=== PATIENT | female | born 1975 | race Caucasian/White ===

== ENCOUNTER 2018-06-17 19:49 | Emergency (ER) | payer MEDICARE, MEDICAID ==
[~2018-06-17] VITALS: Ht 157.5 cm; Wt 74.8 kg
[2018-06-17] MEDS ORDERED: COZAAR 25 MG TA25 M1 PO (20:07)
[2018-06-17] MEDS ORDERED: LASIX 20 MG TAB20 MG PO (20:07)
[2018-06-17 20:23] LABS: URINE BILIRUBIN NEGATIVE (Negative); URINE BLOOD 2+ (Negative); URINE CLARITY CLEAR; URINE COLOR YELLOW; URINE GLUCOSE-RANDOM NEGATIVE (Negative); URINE KETONES NEGATIVE (Negative); URINE LEUKOCYTES 1+ (Negative); URINE NITRITE NEGATIVE (Negative); URINE PROTEIN NEGATIVE (Negative); URINE UROBILINOGEN 0.2 E.U./dl (0.2-1.0)
[2018-06-17 20:33] LABS: MUCUS None Seen strn/LPF (None Seen); SQUAMOUS >10 Many /LPF (0-3); URINE WBC 0-5 Rare /HPF (0-5)
[2018-06-17 20:34] LABS: CASTS None Seen /LPF (None Seen); CRYSTALS None Seen /LPF (None Seen); URINE RBC 3-10 Few /HPF (0-2)
[2018-06-17 20:44] LABS: ABSOLUTE EOSINOPHILS 0.2 thou/uL (0.0-0.7); ABSOLUTE LYMPHOCYTES 3.3 thou/uL (0.8-5.3); ABSOLUTE MONOCYTES 0.6 thou/uL (0.0-1.2); ABSOLUTE NEUTROPHILS 4.4 thou/uL (1.6-8.1); BASOPHILS 0.6 %; EOSINOPHILS 1.8 %; HEMATOCRIT 44.3 % (37.0-47.0); HEMOGLOBIN 15.3 gm/dL (12.0-15.0); LYMPHOCYTES 39.4 %; MCH 31.5 pg (26.0-34.0); MCHC 34.6 g/dL (28.0-37.0); MCV 90.9 fL (80.0-100.0); MONOCYTES 6.7 %; MPV 7.4 fl. (7.2-11.1); NUCLEATED RBCS 0 /100WBC; PLATELET COUNT* 292 thou/uL (150-400); POLYS 51.5 %; RBC 4.87 mil/uL (4.20-5.00); RDW-CV 11.8 % (10.5-14.5); WBC 8.4 thou/uL (4.0-11.0)
[2018-06-17 20:53] LABS: CALCIUM 9.6 mg/dL (8.5-10.1); CREATININE 0.7 mg/dL (0.6-1.3); POTASSIUM 3.6 mmol/L (3.5-5.1)
[2018-06-17 20:57] LABS: ALBUMIN 3.5 g/dL (3.4-5.0); TOTAL BILIRUBIN 0.2 mg/dL (<0.1-1.0); TOTAL PROTEIN 6.8 g/dL (6.4-8.2)
[2018-06-17] MEDS ORDERED: ACETAMINOPHEN-1 EAC1 PO (22:14)
[2018-06-17] MEDS ORDERED: KEFLEX500 M1 PO (22:14)
[2018-06-17] MEDS ORDERED: NABUMETONE 750750 M1 PO (22:14)
[2018-06-17 22:23] VITALS: BP 190/78
== END 2018-06-17 22:23 | disposition home or self-care (01) ==
LOC: M.ERS 19:49
PROVIDERS: Nurse Practitioner Family
DX: R19.04 Left lower quadrant abdominal swelling, mass and lump (principal); N39.0 Urinary tract infection, site not specified; I10 Essential (primary) hypertension; Z91.041 Radiographic dye allergy status; Z88.8 Allergy status to other drugs, medicaments and biological substances

== ENCOUNTER 2018-07-13 16:57 | Emergency (ER) | payer MEDICARE, MEDICAID ==
[~2018-07-13] VITALS: Ht 157.5 cm; Wt 73.9 kg
[~2018-07-13 16:57] MED LIST: ACETAMINOPHEN-1 EAC1 PO; COZAAR 25 MG TA25 M1 PO; KEFLEX500 M1 PO; LASIX 20 MG TAB20 MG PO; NABUMETONE 750750 M1 PO
[2018-07-13] MEDS ORDERED: [UNRECOGNIZED DRUG - OTHER] (17:08)
[2018-07-13 18:09] LABS: ANION GAP 9 mmol/L (7-16); BUN 13 mg/dL (7-18); CALCIUM 10.4 mg/dL (8.5-10.1); CHLORIDE 103 mmol/L (98-107); CO2 29 mmol/L (21-32); CREATININE 0.7 mg/dL (0.6-1.3); GLUCOSE 119 mg/dL (70-99); POTASSIUM 4.2 mmol/L (3.5-5.1); SODIUM 141 mmol/L (136-145)
[2018-07-13 18:15] LABS: ABSOLUTE BASOPHILS 0.1 thou/uL (0.0-0.2); ABSOLUTE EOSINOPHILS 0.1 thou/uL (0.0-0.7); ABSOLUTE LYMPHOCYTES 3.5 thou/uL (0.8-5.3); ABSOLUTE MONOCYTES 0.7 thou/uL (0.0-1.2); BASOPHILS 1.2 %; HEMATOCRIT 48.1 % (37.0-47.0); HEMOGLOBIN 16.2 gm/dL (12.0-15.0); LYMPHOCYTES 41.5 %; MCH 30.9 pg (26.0-34.0); MCHC 33.7 g/dL (28.0-37.0); MCV 91.8 fL (80.0-100.0); MONOCYTES 8.5 %; MPV 7.8 fl. (7.2-11.1); NUCLEATED RBCS 0 /100WBC; PLATELET COUNT* 326 thou/uL (150-400); POLYS 47.8 %; RBC 5.24 mil/uL (4.20-5.00); WBC 8.4 thou/uL (4.0-11.0)
[2018-07-13 18:20] LABS: ALBUMIN 4.2 g/dL (3.4-5.0); ALKALINE PHOSPHATASE 51 U/L (46-116); NT-PRO BRAIN NAT PEPTIDE 25 pg/mL (<300); SGOT 26 U/L (15-37); SGPT 30 U/L (30-65); TOTAL BILIRUBIN 0.4 mg/dL (<0.1-1.0); TOTAL PROTEIN 7.9 g/dL (6.4-8.2); TROPONIN-I LEVEL <0.06 ng/mL (<0.06)
[2018-07-13 19:54] LABS: URINE BILIRUBIN NEGATIVE (Negative); URINE BLOOD 2+ (Negative); URINE CLARITY CLEAR; URINE COLOR YELLOW; URINE GLUCOSE-RANDOM NEGATIVE (Negative); URINE KETONES NEGATIVE (Negative); URINE LEUKOCYTES NEGATIVE (Negative); URINE NITRITE NEGATIVE (Negative); URINE PROTEIN NEGATIVE (Negative); URINE SPECIFIC GRAVITY 1.015 (1.005-1.030); URINE UROBILINOGEN 0.2 E.U./dl (0.2-1.0)
[2018-07-13 20:05] LABS: CASTS None Seen /LPF (None Seen); CRYSTALS None Seen /LPF (None Seen); MUCUS None Seen strn/LPF (None Seen); SQUAMOUS 4-10 Moderate /LPF (0-3); URINE RBC 3-10 Few /HPF (0-2)
[2018-07-13 20:06] LABS: AMP/METHAMP Negative (Negative); BARBITURATES Negative (Negative); BENZODIAZEPINES Negative (Negative); COCAINE Negative (Negative); METHADONE Negative (Negative); OPIATES Negative (Negative); PCP Negative (Negative); THC Negative (Negative)
[2018-07-13 20:08] LABS: BACTERIA 1-9 Few /HPF (None Seen); URINE WBC None Seen /HPF (0-5)
[2018-07-13 21:32] VITALS: BP 143/90
--- NOTE | 2018-07-14 10:23 | EKG ---
[place] [address] ELECTROCARDIOGRAM REPORT Name: LUCY FRANCOIS Room: [facility] ([place], [place])#: [id number] Admission: 07/13/18 Attend Phys: Discharge: 07/13/18 Date of : 77 Report #: [id number] THIS REPORT FOR: //name// [facility] ED Test Date: 2018-07-13 Test Time: 17:02:05 Pat Name: LUCY FRANCOIS Department: Room: Gender: F Wafer Slicer: Faith MATTHEWS : 1975 Requested By: Renata Haynes Order Number: [id number] MD: Garrick Quintero Measurements Intervals [place] Rate: 88 P: 39 [place]: 151 QRS: 5 QRSD: 77 T: 33 QT: 326 QTc: 395 Interpretive Statements Sinus arrhythmia Low voltage, precordial leads Anteroseptal infarct, old No previous ECG available for comparison Electronically Signed On 07-14-2018 10:23:17 MEDICAL INSTRUMENT CABLE FABRICATOR by Garrick Quintero [email or web address] <ELECTRONICALLY SIGNED> By: Garrick Quintero MD, [facility] 07/14/18 1023 1702 01 Garrick Quintero MD, FACC /EPI
--- NOTE | 2018-07-14 10:24 | EKG ---
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 : 1975 Requested By: Renata Haynes Order Number: [id number] MD: Garrick Quintero Measurements Intervals [place] Rate: 89 P: 48 [place]: 158 QRS: 1 QRSD: 78 T: 17 QT: 343 QTc: 418 Interpretive Statements Sinus rhythm Low voltage, precordial leads Probable anteroseptal infarct, old No previous ECG available for comparison Electronically Signed On 07-14-2018 10:24:03 BRAZING MACHINE SETTER by Garrick Quintero [email or web address] <ELECTRONICALLY SIGNED> By: Garrick Quintero MD, [facility] 07/14/18 1024 38 38 Garrick Quintero MD, FACC /EPI
== END 2018-07-13 21:35 | disposition home or self-care (01) ==
LOC: M.ERS 16:57
PROVIDERS: Nurse Practitioner Family
DX: R00.2 Palpitations (principal); I10 Essential (primary) hypertension; Z90.49 Acquired absence of other specified parts of digestive tract; Z91.041 Radiographic dye allergy status; Z88.8 Allergy status to other drugs, medicaments and biological substances

== ENCOUNTER 2019-02-04 20:32 | Emergency (ER) | payer MEDICARE, MEDICAID ==
[~2019-02-04] VITALS: Ht 157.5 cm; Wt 78.6 kg
[~2019-02-04 20:32] MED LIST changes: +[UNRECOGNIZED DRUG - OTHER]
[2019-02-04 21:35] LABS: ABSOLUTE BASOPHILS 0.1 thou/uL (0.0-0.2); ABSOLUTE EOSINOPHILS 0.1 thou/uL (0.0-0.7); ABSOLUTE LYMPHOCYTES 2.9 thou/uL (0.8-5.3); ABSOLUTE MONOCYTES 0.6 thou/uL (0.0-1.2); ABSOLUTE NEUTROPHILS 4.9 thou/uL (1.6-8.1); BASOPHILS 0.7 %; EOSINOPHILS 1.2 %; HEMATOCRIT 43.1 % (37.0-47.0); HEMOGLOBIN 14.9 gm/dL (12.0-15.0); LYMPHOCYTES 34.4 %; MCH 30.6 pg (26.0-34.0); MCHC 34.6 g/dL (28.0-37.0); MCV 88.3 fL (80.0-100.0); MONOCYTES 6.5 %; MPV 7.3 fl. (7.2-11.1); NUCLEATED RBCS 0 /100WBC; PLATELET COUNT* 304 thou/uL (150-400); POLYS 57.2 %; RBC 4.88 mil/uL (4.20-5.00); RDW-CV 12.9 % (10.5-14.5); WBC 8.6 thou/uL (4.0-11.0)
[2019-02-04 21:45] LABS: ANION GAP 10 mmol/L (7-16); BUN 15 mg/dL (7-18); CALCIUM 9.8 mg/dL (8.5-10.1); CHLORIDE 104 mmol/L (98-107); CO2 27 mmol/L (21-32); CREATININE 0.8 mg/dL (0.6-1.3); GLUCOSE 102 mg/dL (70-99); POTASSIUM 3.7 mmol/L (3.5-5.1); SODIUM 141 mmol/L (136-145)
[2019-02-04 21:54] LABS: ALBUMIN 3.6 g/dL (3.4-5.0); ALKALINE PHOSPHATASE 54 U/L (46-116); SGOT 15 U/L (15-37); SGPT 32 U/L (30-65); TOTAL BILIRUBIN 0.2 mg/dL (<0.1-1.0); TOTAL PROTEIN 6.8 g/dL (6.4-8.2); TROPONIN-I LEVEL <0.06 ng/mL (<0.06)
[2019-02-04] MEDS ORDERED: NAPROSYN500 MG PO (22:18)
[2019-02-04] MEDS ORDERED: PERCOCET PO (22:18)
[2019-02-04 22:42] VITALS: BP 150/106
--- NOTE | 2019-02-05 10:24 | EKG ---
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: SHELLIE : 1975 Requested By: Mary Ty Order Number: [id number] MD: Ulisses Chung Measurements Intervals [place] Rate: 67 P: 27 [place]: 158 QRS: 10 QRSD: 78 T: 26 QT: 382 QTc: 404 Interpretive Statements Sinus rhythm Anteroseptal infarct, age indeterminate Compared to ECG 07/13/2018 20:39:50 No significant changes Electronically Signed On 02-05-2019 10:24:34 CDT by Ulisses Chung [email or web address] <ELECTRONICALLY SIGNED> By: Ulisses Chung MD, [facility] 02/05/19 1024 07 Ulisses Chung MD, FACC /EPI
== END 2019-02-04 22:44 | disposition home or self-care (01) ==
LOC: M.ERS 20:32
PROVIDERS: Physician Assistant
DX: M54.6 Pain in thoracic spine (principal); I10 Essential (primary) hypertension; Z90.49 Acquired absence of other specified parts of digestive tract; Z90.89 Acquired absence of other organs; Z90.710 Acquired absence of both cervix and uterus; Z88.8 Allergy status to other drugs, medicaments and biological substances; Z88.6 Allergy status to analgesic agent; Z91.041 Radiographic dye allergy status

== ENCOUNTER 2019-02-08 17:51 | Emergency (ER) | payer MEDICARE, MEDICAID ==
[~2019-02-08] VITALS: Ht 157.5 cm; Wt 76.2 kg
[~2019-02-08 17:51] MED LIST changes: +NAPROSYN500 MG PO; +PERCOCET PO
[2019-02-08] MEDS ORDERED: NAPROSYN500 MG PO (19:43)
[2019-02-08 20:26] VITALS: BP 155/89
== END 2019-02-08 20:27 | disposition home or self-care (01) ==
LOC: M.ERS 17:51
DX: M72.2 Plantar fascial fibromatosis (principal); M77.32 Calcaneal spur, left foot; Z90.49 Acquired absence of other specified parts of digestive tract; Z90.710 Acquired absence of both cervix and uterus; Z91.041 Radiographic dye allergy status; Z88.8 Allergy status to other drugs, medicaments and biological substances

== ENCOUNTER 2019-05-19 18:45 | Emergency (ER) | payer MEDICARE, MEDICAID ==
[~2019-05-19] VITALS: Ht 157.5 cm; Wt 74.0 kg
[~2019-05-19 18:45] MED LIST changes: +FLEXERIL; +LOPRESSOR25 PO
[2019-05-19 19:32] LABS: AMP/METHAMP Negative (Negative); BARBITURATES Negative (Negative); BENZODIAZEPINES Negative (Negative); COCAINE Negative (Negative); METHADONE Negative (Negative); OPIATES Negative (Negative); PCP Negative (Negative); THC Negative (Negative)
[2019-05-19 19:33] LABS: URINE BILIRUBIN NEGATIVE (Negative); URINE BLOOD 1+ (Negative); URINE CLARITY CLEAR; URINE COLOR YELLOW; URINE GLUCOSE-RANDOM NEGATIVE (Negative); URINE KETONES NEGATIVE (Negative); URINE LEUKOCYTES-REFLEX NEGATIVE (Negative); URINE NITRITE-REFLEX NEGATIVE (Negative); URINE PROTEIN NEGATIVE (Negative); URINE SPECIFIC GRAVITY <= 1.005 (1.005-1.030); URINE UROBILINOGEN 0.2 E.U./dl (0.2-1.0)
[2019-05-19 20:28] LABS: CASTS None Seen /LPF (None Seen); SQUAMOUS 0-3 Few /LPF (0-3)
[2019-05-19 20:29] LABS: URINE WBC-REFLEX None Seen /HPF (0-5)
[2019-05-19 20:30] LABS: BACTERIA-REFLEX None Seen /HPF (None Seen); CRYSTALS None Seen /LPF (None Seen); URINE RBC 3-10 Few /HPF (0-2)
[2019-05-19] MEDS ORDERED: NORCO 5-325 TA1 EAC1 PO (20:31)
[2019-05-19] MEDS ORDERED: FLEXERIL PO (20:31)
[2019-05-19 20:41] VITALS: BP 124/86
== END 2019-05-19 20:41 | disposition home or self-care (01) ==
LOC: M.ERS 18:45
PROVIDERS: Emergency Medicine
DX: M62.830 Muscle spasm of back (principal); I10 Essential (primary) hypertension; Z88.8 Allergy status to other drugs, medicaments and biological substances; Z91.041 Radiographic dye allergy status; Z90.49 Acquired absence of other specified parts of digestive tract; Z98.890 Other specified postprocedural states; Z90.710 Acquired absence of both cervix and uterus; Z79.899 Other long term (current) drug therapy

== ENCOUNTER 2019-09-22 22:05 | Emergency (ER) | payer MEDICARE, MEDICAID ==
[~2019-09-22] VITALS: Ht 157.5 cm; Wt 76.2 kg
[~2019-09-22 22:05] MED LIST changes: +FLEXERIL PO; +NORCO 5-325 TA1 EAC1 PO
[2019-09-22 22:47] LABS: URINE BILIRUBIN NEGATIVE (Negative); URINE BLOOD 2+ (Negative); URINE CLARITY CLEAR; URINE COLOR YELLOW; URINE GLUCOSE-RANDOM NEGATIVE (Negative); URINE KETONES NEGATIVE (Negative); URINE LEUKOCYTES-REFLEX NEGATIVE (Negative); URINE NITRITE-REFLEX NEGATIVE (Negative); URINE PROTEIN NEGATIVE (Negative); URINE UROBILINOGEN 0.2 E.U./dl (0.2-1.0)
[2019-09-22 23:07] LABS: ABSOLUTE EOSINOPHILS 0.1 thou/uL (0.0-0.7); ABSOLUTE LYMPHOCYTES 3.1 thou/uL (0.8-5.3); ABSOLUTE MONOCYTES 0.5 thou/uL (0.0-1.2); ABSOLUTE NEUTROPHILS 4.4 thou/uL (1.6-8.1); BASOPHILS 0.4 %; EOSINOPHILS 0.7 %; HEMATOCRIT 41.8 % (37.0-47.0); HEMOGLOBIN 14.8 gm/dL (12.0-15.0); LYMPHOCYTES 38.5 %; MCH 31.5 pg (26.0-34.0); MCHC 35.4 g/dL (28.0-37.0); MCV 88.8 fL (80.0-100.0); MPV 7.5 fl. (7.2-11.1); NUCLEATED RBCS 0 /100WBC; PLATELET COUNT* 260 thou/uL (150-400); POLYS 54.4 %; RDW-CV 12.6 % (10.5-14.5); WBC 8.1 thou/uL (4.0-11.0)
[2019-09-22 23:14] LABS: CALCIUM 8.9 mg/dL (8.5-10.1); CREATININE 0.8 mg/dL (0.6-1.3); POTASSIUM 3.4 mmol/L (3.5-5.1)
[2019-09-23 00:10] LABS: CASTS None Seen /LPF (None Seen); SQUAMOUS >10 Many /LPF (0-3); URINE RBC 0-2 Rare /HPF (0-2); URINE WBC-REFLEX 0-5 Rare /HPF (0-5)
[2019-09-23 00:11] LABS: CRYSTALS None Seen /LPF (None Seen)
[2019-09-23] MEDS ORDERED: KEFLEX500 M1 PO (00:38)
[2019-09-23] MEDS ORDERED: HYDROCODON-ACE1 EAC8 PO (00:38)
[2019-09-23 00:48] VITALS: BP 123/92
== END 2019-09-23 00:48 | disposition home or self-care (01) ==
LOC: M.ERS 22:05
PROVIDERS: Emergency Medicine
DX: R31.9 Hematuria, unspecified (principal); I10 Essential (primary) hypertension; Z90.49 Acquired absence of other specified parts of digestive tract; Z90.89 Acquired absence of other organs; Z90.710 Acquired absence of both cervix and uterus; Z88.8 Allergy status to other drugs, medicaments and biological substances

== ENCOUNTER 2019-10-02 18:16 | Emergency (ER) | payer MEDICARE, MEDICAID ==
[~2019-10-02] VITALS: Ht 157.5 cm; Wt 75.3 kg
[~2019-10-02 18:16] MED LIST changes: +HYDROCODON-ACE1 EAC8 PO
[2019-10-02 18:57] LABS: URINE BILIRUBIN NEGATIVE (Negative); URINE BLOOD 1+ (Negative); URINE CLARITY CLEAR; URINE COLOR STRAW; URINE GLUCOSE-RANDOM NEGATIVE (Negative); URINE KETONES NEGATIVE (Negative); URINE LEUKOCYTES-REFLEX NEGATIVE (Negative); URINE NITRITE-REFLEX NEGATIVE (Negative); URINE PROTEIN NEGATIVE (Negative); URINE SPECIFIC GRAVITY <= 1.005 (1.005-1.030); URINE UROBILINOGEN 0.2 E.U./dl (0.2-1.0)
[2019-10-02 19:25] LABS: MUCUS None Seen strn/LPF (None Seen); SQUAMOUS 4-10 Moderate /LPF (0-3)
[2019-10-02 19:26] LABS: BACTERIA-REFLEX None Seen /HPF (None Seen); CASTS None Seen /LPF (None Seen); CRYSTALS None Seen /LPF (None Seen); URINE RBC 0-2 Rare /HPF (0-2); URINE WBC-REFLEX None Seen /HPF (0-5)
[2019-10-02 19:39] LABS: ABSOLUTE EOSINOPHILS 0.1 thou/uL (0.0-0.7); ABSOLUTE LYMPHOCYTES 2.7 thou/uL (0.8-5.3); ABSOLUTE MONOCYTES 0.7 thou/uL (0.0-1.2); ABSOLUTE NEUTROPHILS 3.4 thou/uL (1.6-8.1); BASOPHILS 0.5 %; EOSINOPHILS 1.2 %; HEMATOCRIT 46.7 % (37.0-47.0); HEMOGLOBIN 16.2 gm/dL (12.0-15.0); LYMPHOCYTES 39.3 %; MCHC 34.8 g/dL (28.0-37.0); MONOCYTES 9.7 %; MPV 7.7 fl. (7.2-11.1); NUCLEATED RBCS 0 /100WBC; PLATELET COUNT* 286 thou/uL (150-400); POLYS 49.3 %; RBC 5.24 mil/uL (4.20-5.00); RDW-CV 12.3 % (10.5-14.5); WBC 6.9 thou/uL (4.0-11.0)
[2019-10-02 19:47] LABS: CALCIUM 10.4 mg/dL (8.5-10.1); CREATININE 0.9 mg/dL (0.6-1.3); POTASSIUM 3.9 mmol/L (3.5-5.1)
[2019-10-02 19:51] LABS: ALBUMIN 3.9 g/dL (3.4-5.0); TOTAL BILIRUBIN 0.5 mg/dL (<0.1-1.0); TOTAL PROTEIN 7.3 g/dL (6.4-8.2)
[2019-10-02] MEDS ORDERED: ONDANSETRON HCL4 M2 PO (20:09)
[2019-10-02] MEDS ORDERED: NORCO 5-325 TA1 EAC1 PO (20:09)
[2019-10-02] MEDS ORDERED: NABUMETONE 750750 M1 PO (20:09)
[2019-10-02 20:41] VITALS: BP 156/99
== END 2019-10-02 20:44 | disposition home or self-care (01) ==
LOC: M.ERS 18:16
PROVIDERS: Nurse Practitioner Family
DX: R10.31 Right lower quadrant pain (principal); R11.0 Nausea; I10 Essential (primary) hypertension; Z90.49 Acquired absence of other specified parts of digestive tract; Z90.89 Acquired absence of other organs; Z90.710 Acquired absence of both cervix and uterus; Z91.041 Radiographic dye allergy status; Z88.8 Allergy status to other drugs, medicaments and biological substances

== ENCOUNTER → 2019-10-31 | Outpatient (CLI) | payer MEDICARE, MEDICAID ==
[~2019-10-31] MED LIST changes: +ONDANSETRON HCL4 M2 PO
--- NOTE | 2019-11-03 15:26 | SLEEP ---
[address] [address] SLEEP STUDY REPORT Name: ALESSANDRO [id number] Admission: 10/31/19 Attend Phys: Kevin Alexander DO Discharge: Date of : 77 Report #: [id number] THIS REPORT FOR: //name// CC: Kevin Alexander DO This study has been reviewed in its entirety by a board certified sleep specialist DATE OF SERVICE: 10/31/2019 SLEEP STUDY REFERRING PHYSICIAN: Kevin Alexander DO The patient is 44 years old who weighs 165 pounds with a BMI of 30.2. The patient's Diagonal score was 3. The patient underwent sleep study performed at [facility]. During the night study, the patient spent 416 minutes in bed and slept for 242 minutes with a low sleep efficiency of 58%. Sleep latency was 23 minutes with a REM latency of 288 minutes. Sleep architecture showed increased stage 1 sleep, normal stage 2 sleep, increased slow wave and reduced REM sleep. During the night study, the patient had 1 central apnea, no mixed or obstructive apneas and 6 hypopneas. The patient's AHI for the entire night was 1.7 per hour with a REM AHI of 2 per hour and a supine AHI of 3.4 per hour. EKG monitoring revealed an average heart rate of 97 beats per minute. No sustained arrhythmias observed. PLMS were seen at an index of 22 per hour and 14 per hour caused EEG arousals. Nocturnal oximetry study revealed an average oxygen saturation of 96% with the lowest of 91%. Due to low AHI, the patient did not meet the split night criteria for CPAP initiation. IMPRESSION: 1. No clinically significant sleep disorder breathing. The patient's AHI for the entire night was 1.7 per hour. 2. No clinically significant nocturnal hypoxia. 3. Moderate periodic limb movements of sleep with EEG arousals. 4. Reduced sleep efficiency resulting from sleep [place] [address] SLEEP STUDY REPORT Name: Room: [facility]#: [id number] Admission: 10/31/19 Attend Phys: Kevin Alexander DO Discharge: Date of : 77 Report #: [id number] RECOMMENDATIONS: 1. The patient did not meet the split night criteria for CPAP initiation due to low AHI. 2. Weight loss to the ideal body weight is recommended. 3. Avoid [employer] BI CONSULTANT depressants. 4. The patient should also be further evaluated for symptoms of restless legs during the day. <ELECTRONICALLY SIGNED> By: Lowell Hodges MD 11/03/19 1526 0956 Delta Hodges MD /nt
== END ==
LOC: M.SLEEPLAB 21:00
DX: G47.33 Obstructive sleep apnea (adult) (pediatric) (principal); R40.0 Somnolence

== ENCOUNTER 2020-04-29 20:45 | Emergency (ER) | payer MEDICARE, MEDICAID ==
[~2020-04-29] VITALS: Ht 157.5 cm; Wt 83.0 kg
[2020-04-29] MEDS ORDERED: COZAAR 25 MG TA25 M1 PO (20:57)
[2020-04-29 21:04] LABS: URINE BILIRUBIN NEGATIVE (Negative); URINE BLOOD 2+ (Negative); URINE COLOR YELLOW; URINE GLUCOSE-RANDOM NEGATIVE (Negative); URINE KETONES NEGATIVE (Negative); URINE LEUKOCYTES-REFLEX NEGATIVE (Negative); URINE NITRITE-REFLEX NEGATIVE (Negative); URINE PROTEIN NEGATIVE (Negative); URINE UROBILINOGEN 0.2 E.U./dl (0.2-1.0)
[2020-04-29 21:06] LABS: URINE CLARITY HAZY
[2020-04-29 21:09] LABS: BACTERIA-REFLEX 1-9 Few /HPF (None Seen); CASTS None Seen /LPF (None Seen); CRYSTALS None Seen /LPF (None Seen); SQUAMOUS 4-10 Moderate /LPF (0-3); URINE RBC 3-10 Few /HPF (0-2); URINE WBC-REFLEX 0-5 Rare /HPF (0-5)
[2020-04-29] MEDS ORDERED: KEFLEX500 M1 PO (23:24)
[2020-04-29] MEDS ORDERED: IBUPROFEN 600600 M1 PO (23:24)
[2020-04-29] MEDS ORDERED: ULTRAM 50MG TAB50 MG PO (23:24)
[2020-04-29 23:37] VITALS: BP 164/78
--- NOTE | 2020-04-30 10:32 | EKG ---
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: [place] : 1975 Requested By: Silvia Zepeda Order Number: [id number] MD: Levar Edwards Measurements Intervals [place] Rate: 99 P: 53 [place]: 149 QRS: 4 QRSD: 74 T: 40 QT: 322 QTc: 414 Interpretive Statements Sinus tachycardia Low voltage, precordial leads Probable anteroseptal infarct, old Compared to ECG 03/03/2019 02:54:12 Low QRS voltage now present Myocardial infarct finding now present Sinus rate has increased Electronically Signed On 04-30-2020 10:32:07 CDT by Levar Edwards [email or web address] <ELECTRONICALLY SIGNED> By: Levar Edwards MD, [facility] 04/30/20 1032 56 56 Levar Edwards MD, [facility] /EPI
== END 2020-04-29 23:38 | disposition home or self-care (01) ==
LOC: M.ERS 20:45
PROVIDERS: Personal Emergency Response Attendant
DX: R31.9 Hematuria, unspecified (principal); R10.9 Unspecified abdominal pain; I10 Essential (primary) hypertension; Z91.041 Radiographic dye allergy status; Z88.8 Allergy status to other drugs, medicaments and biological substances; Z79.899 Other long term (current) drug therapy; Z90.49 Acquired absence of other specified parts of digestive tract; Z90.710 Acquired absence of both cervix and uterus

== ENCOUNTER 2020-05-04 16:28 | Emergency (ER) | payer MEDICARE, MEDICAID ==
[~2020-05-04] VITALS: Ht 157.5 cm; Wt 81.2 kg
[~2020-05-04 16:28] MED LIST changes: +IBUPROFEN 600600 M1 PO; +ULTRAM 50MG TAB50 MG PO
[2020-05-04 18:39] LABS: ABSOLUTE BASOPHILS 0.1 thou/uL (0.0-0.2); ABSOLUTE EOSINOPHILS 0.1 thou/uL (0.0-0.7); ABSOLUTE MONOCYTES 0.6 thou/uL (0.0-1.2); ABSOLUTE NEUTROPHILS 7.1 thou/uL (1.6-8.1); EOSINOPHILS 0.8 %; HEMATOCRIT 44.1 % (37.0-47.0); HEMOGLOBIN 15.5 gm/dL (12.0-15.0); LYMPHOCYTES 27.7 %; MCH 31.6 pg (26.0-34.0); MCHC 35.2 g/dL (28.0-37.0); MCV 89.9 fL (80.0-100.0); MONOCYTES 5.8 %; MPV 7.7 fl. (7.2-11.1); NUCLEATED RBCS 0 /100WBC; PLATELET COUNT* 274 thou/uL (150-400); POLYS 64.7 %; RDW-CV 12.5 % (10.5-14.5)
[2020-05-04 18:44] LABS: URINE BILIRUBIN NEGATIVE (Negative); URINE BLOOD 1+ (Negative); URINE CLARITY CLEAR; URINE COLOR YELLOW; URINE GLUCOSE-RANDOM NEGATIVE (Negative); URINE KETONES NEGATIVE (Negative); URINE LEUKOCYTES-REFLEX NEGATIVE (Negative); URINE NITRITE-REFLEX NEGATIVE (Negative); URINE PROTEIN NEGATIVE (Negative); URINE UROBILINOGEN 0.2 E.U./dl (0.2-1.0)
[2020-05-04 18:46] LABS: CALCIUM 9.4 mg/dL (8.5-10.1); CREATININE 0.8 mg/dL (0.6-1.3)
[2020-05-04 18:51] LABS: ALBUMIN 3.9 g/dL (3.4-5.0); TOTAL BILIRUBIN 0.6 mg/dL (<0.1-1.0); TOTAL PROTEIN 7.2 g/dL (6.4-8.2)
[2020-05-04 18:53] LABS: MUCUS None Seen strn/LPF (None Seen); SQUAMOUS >10 Many /LPF (0-3)
[2020-05-04 18:54] LABS: CASTS None Seen /LPF (None Seen); CRYSTALS None Seen /LPF (None Seen); URINE RBC 0-2 Rare /HPF (0-2); URINE WBC-REFLEX None Seen /HPF (0-5)
[2020-05-04] MEDS ORDERED: NORCO 5-325 TA1 EAC2 PO (21:01)
[2020-05-04] MEDS ORDERED: IBUPROFEN 800800 M1 PO (21:02)
[2020-05-04 21:22] VITALS: BP 154/97
== END 2020-05-04 21:23 | disposition home or self-care (01) ==
LOC: M.ERS 16:28
PROVIDERS: Nurse Practitioner Family
DX: R10.2 Pelvic and perineal pain (principal); R19.7 Diarrhea, unspecified; I10 Essential (primary) hypertension; Z90.49 Acquired absence of other specified parts of digestive tract; Z90.710 Acquired absence of both cervix and uterus; Z91.041 Radiographic dye allergy status; Z88.8 Allergy status to other drugs, medicaments and biological substances

== ENCOUNTER 2020-10-25 20:26 | Emergency (ER) | payer MEDICARE, MEDICAID ==
[~2020-10-25] VITALS: Ht 157.5 cm; Wt 91.0 kg
[~2020-10-25 20:26] MED LIST changes: +IBUPROFEN 800800 M1 PO; +NORCO 5-325 TA1 EAC2 PO
[2020-10-25] MEDS ORDERED: [UNRECOGNIZED DRUG - OTHER] SUBQ (20:43)
[2020-10-25] MEDS ORDERED: COZAAR100 MG PO (20:43)
[2020-10-25] MEDS ORDERED: DIPHENHYDRAMINE25 M3 PO (20:44)
[2020-10-25] MEDS ORDERED: NORVASC 2.5 MG2.5 M1 PO (20:44)
[2020-10-25] MEDS ORDERED: [UNRECOGNIZED DRUG - OTHER] PO (20:44)
[2020-10-25 21:34] LABS: HEMATOCRIT 40.8 % (37.0-47.0); MCHC 34.3 g/dL (28.0-37.0); MCV 87.4 fL (80.0-100.0); MPV 6.8 fl. (7.2-11.1); NUCLEATED RBCS 0 /100WBC; PLATELET COUNT* 327 thou/uL (150-400); RBC 4.67 mil/uL (4.20-5.00); RDW-CV 13.4 % (10.5-14.5); WBC 8.4 thou/uL (4.0-11.0)
[2020-10-25 21:42] LABS: APTT 24.2 Seconds (25.0-31.3); CALCIUM 9.8 mg/dL (8.5-10.1); CREATININE 0.9 mg/dL (0.6-1.3); INR 0.9; PROTIME 10.1 Seconds (9.20-11.50)
[2020-10-25 21:53] LABS: ALBUMIN 3.4 g/dL (3.4-5.0); TOTAL BILIRUBIN 0.2 mg/dL (<0.1-1.0); TOTAL PROTEIN 7.3 g/dL (6.4-8.2)
[2020-10-25 22:52] LABS: ABSOLUTE EOSINOPHILS 1.1 thou/uL (0.0-0.7); ABSOLUTE LYMPHOCYTES 3.1 thou/uL (0.8-5.3); ABSOLUTE MONOCYTES 0.4 thou/uL (0.0-1.2); ABSOLUTE NEUTROPHILS 3.8 thou/uL (1.6-8.1)
[2020-10-25 22:54] LABS: PLATELET ESTIMATE ADEQUATE
[2020-10-25] MEDS ORDERED: CATAPRES0.1 MG PO (23:00)
[2020-10-25] MEDS ORDERED: ZPAK PO (23:00)
[2020-10-25 23:10] VITALS: BP 145/89
--- NOTE | 2020-10-26 11:03 | EKG ---
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: : 1975 Requested By: Silvia Zepeda Order Number: [id number] MD: Garrick Quintero Measurements Intervals [place] Rate: 102 P: 52 [place]: 146 QRS: 9 QRSD: 71 T: 38 QT: 321 QTc: 419 Interpretive Statements Sinus tachycardia Anteroseptal infarct, age indeterminate, possible Compared to ECG 04/29/2020 20:57:12 No significant changes Electronically Signed On 10-26-2020 11:03:45 LIVESTOCK SALES REPRESENTATIVE by Garrick Quintero [email or web address] <ELECTRONICALLY SIGNED> By: Garrick Quintero MD, FAC 10/26/20 1103 14 14 Garrick Quintero MD, [facility] /EPI
== END 2020-10-25 23:11 | disposition still patient (30) ==
LOC: M.ERS 20:26
PROVIDERS: Personal Emergency Response Attendant
DX: I16.0 Hypertensive urgency (principal); J18.9 Pneumonia, unspecified organism; Z20.822 Contact with and (suspected) exposure to COVID-19; I10 Essential (primary) hypertension; Z90.49 Acquired absence of other specified parts of digestive tract; Z90.89 Acquired absence of other organs; Z90.710 Acquired absence of both cervix and uterus; Z88.8 Allergy status to other drugs, medicaments and biological substances; Z91.041 Radiographic dye allergy status

== ENCOUNTER 2020-10-30 20:47 | Emergency (ER) | payer MEDICARE, MEDICAID ==
[~2020-10-30] VITALS: Ht 157.5 cm; Wt 85.3 kg
[~2020-10-30 20:47] MED LIST changes: +CATAPRES0.1 MG PO; +COZAAR100 MG PO; +DIPHENHYDRAMINE25 M3 PO; +NORVASC 2.5 MG2.5 M1 PO; +ZPAK PO; +[UNRECOGNIZED DRUG - OTHER] PO; +[UNRECOGNIZED DRUG - OTHER] SUBQ
[2020-10-30] MEDS ORDERED: NAPROSYN500 MG PO (21:07)
[2020-10-30] MEDS ORDERED: APAP W/CODEINE1 TA2 PO (21:07)
[2020-10-30] MEDS ORDERED: TRAMADOL 50 MG50 MG PO (21:58)
[2020-10-30 22:00] VITALS: BP 188/96
== END 2020-10-30 22:00 | disposition home or self-care (01) ==
LOC: M.ERS 20:47
DX: M25.511 Pain in right shoulder (principal); I10 Essential (primary) hypertension; Z88.8 Allergy status to other drugs, medicaments and biological substances; Z91.041 Radiographic dye allergy status; Z90.49 Acquired absence of other specified parts of digestive tract; Z90.89 Acquired absence of other organs; Z90.710 Acquired absence of both cervix and uterus

== ENCOUNTER 2020-12-06 19:59 | Emergency (ER) | payer MEDICARE, MEDICAID ==
[~2020-12-06] VITALS: Ht 157.5 cm; Wt 85.3 kg
[~2020-12-06 19:59] MED LIST changes: +APAP W/CODEINE1 TA2 PO; +TRAMADOL 50 MG50 MG PO
[2020-12-06] MEDS ORDERED: FLEXERIL PO (20:10)
[2020-12-06] MEDS ORDERED: METFORMIN HCL500 M3 PO (20:10)
[2020-12-06 20:38] LABS: URINE BILIRUBIN NEGATIVE (Negative); URINE BLOOD 3+ (Negative); URINE CLARITY CLEAR; URINE COLOR YELLOW; URINE GLUCOSE-RANDOM NEGATIVE (Negative); URINE KETONES NEGATIVE (Negative); URINE LEUKOCYTES-REFLEX NEGATIVE (Negative); URINE NITRITE-REFLEX NEGATIVE (Negative); URINE PROTEIN NEGATIVE (Negative); URINE SPECIFIC GRAVITY >= 1.030 (1.005-1.030); URINE UROBILINOGEN 0.2 E.U./dl (0.2-1.0)
[2020-12-06 20:47] LABS: MUCUS None Seen strn/LPF (None Seen); SQUAMOUS >10 Many /LPF (0-3)
[2020-12-06 20:48] LABS: CASTS None Seen /LPF (None Seen); CRYSTALS None Seen /LPF (None Seen); URINE RBC 3-10 Few /HPF (0-2); URINE WBC-REFLEX 0-5 Rare /HPF (0-5)
[2020-12-06 21:29] LABS: ABSOLUTE BASOPHILS 0.1 thou/uL (0.0-0.2); ABSOLUTE EOSINOPHILS 0.2 thou/uL (0.0-0.7); ABSOLUTE LYMPHOCYTES 2.9 thou/uL (0.8-5.3); ABSOLUTE MONOCYTES 0.6 thou/uL (0.0-1.2); ABSOLUTE NEUTROPHILS 4.2 thou/uL (1.6-8.1); BASOPHILS 0.7 %; CALCIUM 9.6 mg/dL (8.5-10.1); CREATININE 0.9 mg/dL (0.6-1.3); EOSINOPHILS 3.1 %; HEMATOCRIT 41.6 % (37.0-47.0); HEMOGLOBIN 14.3 gm/dL (12.0-15.0); LYMPHOCYTES 36.7 %; MCH 29.8 pg (26.0-34.0); MCHC 34.3 g/dL (28.0-37.0); MCV 86.9 fL (80.0-100.0); MONOCYTES 7.7 %; MPV 6.9 fl. (7.2-11.1); NUCLEATED RBCS 0 /100WBC; PLATELET COUNT* 268 thou/uL (150-400); POLYS 51.8 %; POTASSIUM 3.6 mmol/L (3.5-5.1); RBC 4.78 mil/uL (4.20-5.00); RDW-CV 13.5 % (10.5-14.5)
[2020-12-06 21:33] LABS: ALBUMIN 3.2 g/dL (3.4-5.0); TOTAL BILIRUBIN 0.2 mg/dL (<0.1-1.0)
[2020-12-06] MEDS ORDERED: IBUPROFEN 800800 M1 PO (22:31)
[2020-12-06] MEDS ORDERED: TRAMADOL 50 MG50 MG PO (22:31)
[2020-12-06 23:05] VITALS: BP 148/99
== END 2020-12-06 23:06 | disposition home or self-care (01) ==
LOC: M.ERS 19:59
PROVIDERS: Nurse Practitioner Family
DX: R10.84 Generalized abdominal pain (principal); I10 Essential (primary) hypertension; Z90.710 Acquired absence of both cervix and uterus; Z88.5 Allergy status to narcotic agent; Z91.041 Radiographic dye allergy status; Z88.8 Allergy status to other drugs, medicaments and biological substances; Z90.49 Acquired absence of other specified parts of digestive tract; Z90.89 Acquired absence of other organs

== ENCOUNTER 2020-12-22 00:32 | Emergency (ER) | payer MEDICARE, MEDICAID ==
[~2020-12-22] VITALS: Ht 157.5 cm; Wt 79.8 kg
[~2020-12-22 00:32] MED LIST changes: +METFORMIN HCL500 M3 PO
[2020-12-22] MEDS ORDERED: SPIRONOLACTONE50 MG (00:39)
[2020-12-22] MEDS ORDERED: TRAMADOL 50 MG50 MG PO (00:53)
[2020-12-22] MEDS ORDERED: INDOMETHACIN 2525 MG PO (00:53)
[2020-12-22 01:07] VITALS: BP 160/98
== END 2020-12-22 01:07 | disposition home or self-care (01) ==
LOC: M.ERS 00:32
DX: M77.8 Other enthesopathies, not elsewhere classified (principal); I10 Essential (primary) hypertension; Z88.5 Allergy status to narcotic agent; Z91.041 Radiographic dye allergy status; Z88.8 Allergy status to other drugs, medicaments and biological substances; Z90.49 Acquired absence of other specified parts of digestive tract; Z90.89 Acquired absence of other organs; Z90.710 Acquired absence of both cervix and uterus